=== PATIENT | female | born 1930 | race Caucasian/White ===

== ENCOUNTER 2017-01-13 01:01 | Inpatient (IN) | payer OTHER ==
[~2017-01-13] VITALS: Ht 162.6 cm; Wt 57.6 kg
[2017-01-13] VITALS (7 sets, daily range): BP systolic 94–121; BP diastolic 50–70
[~2017-01-13 01:01] MED LIST: ATORVASTATIN CA20 MG PO; BUSPAR5 MG PO; BYSTOLIC2.5 MG PO; DIVALPROEX SOD125 MG PO; DONEPEZIL HCL5 MG PO; FLOVENT DISKUS1 DISK IH; GLIPIZIDE ER2.5 MG PO; LISINOPRIL5 MG PO; LORAZEPAM0.5 MG PO; POLYETHYLENE G255 GM PO; QUETIAPINE FUMA25 MG PO; SERTRALINE HCL50 MG PO; TYLENOL WITH C1 EACH PO; VITAMIN B-12500 MC3 PO; VITAMIN D31000 UNIT PO
[2017-01-13 02:49] LABS: MCH 25.2 PG (29.0-34.0); MCHC 30.3 G/DL (30.0-36.0); MCV 83.1 FL (83-99); MEAN PLAT.VOLUME 8.9 uM^3 (9.5-12.4); PLATELET COUNT 482 K/uL (156-360); RBC DIS.WIDTH-CV 17.7 % (11.8-14.6); RBC DIS.WIDTH-SD 54.3 % (39-53); RED BLOOD COUNT 3.97 M/uL (3.80-5.20); WHITE BLOOD COUNT 13.5 K/uL (4.1-10.2)
[2017-01-13 03:01] LABS: CHLORIDE 107 mEq/L (99-109); POTASSIUM 4.5 mEq/L (3.7-5.4); SODIUM 142 mEq/L (136-147)
[2017-01-13 03:03] LABS: GLUCOSE 176 mg/dL (70-99)
[2017-01-13 03:04] LABS: ANION GAP 12 MEQ/L (2-14); INTER. NORMALIZED RATIO 1.1; PROTHROMBIN TIME 11.2 (9.2-11.2); PTT 29.7 (25-32)
[2017-01-13 03:05] LABS: TOTAL BILIRUBIN 0.1 mg/dL (0.0-1.0)
[2017-01-13 03:07] LABS: ALKALINE PHOSPHATASE 82 IU/L (3-129); GFR ESTIMATE (CALCULATED) > 59 mL/min/
[2017-01-13 03:08] LABS: UREA NITROGEN (BUN) 16 mg/dL (9-23)
[2017-01-13 03:10] LABS: LIPASE 589 U/L (1.0-51.0)
[2017-01-13 03:11] LABS: TROP-I INTERPRETATION NEGATIVE; TROPONIN-I < 0.01 ng/mL (0.0-0.30)
[2017-01-13 03:20] LABS: ADD MIUA? YES; BILIRUBIN NEGATIVE; BLOOD NEGATIVE; COLOR AMBER ((YELLOW)); GLUCOSE (STRIP) NEGATIVE; KETONES 5; LEUKOCYTES NEGATIVE; NITRITE NEGATIVE; PROTEIN (STRIP) 100; SPECIFIC GRAVITY 1.033 (1.000-1.030)
[2017-01-13 03:54] LABS: BACTERIA 2+ /HPF; CASTS PRESENT /LPF; CRYSTALS PRESENT; EPITHELIAL CELLS 1+ /HPF; MUCUS 2+ /LPF; RED BLOOD CELLS 0-5 /HPF (0-5); UCUL ADDED? NO; WHITE BLOOD CELLS 0-5 /HPF (0-5)
[2017-01-13 03:55] LABS: AMORPHOUS URATES CRYSTALS 2+; HYALINE CASTS 0-5 /LPF
[2017-01-13] MEDS ORDERED: ACETAMINOPHEN325 M3 PO (14:33)
[2017-01-13] MEDS ORDERED: CALCIUM 600 +1 EA17 PO (14:35)
[2017-01-13] MEDS ORDERED: FEOSOL325 MG PO (14:38)
[2017-01-13] MEDS ORDERED: FLOVENT DISKUS1 DISK IH (14:40)
[2017-01-13] MEDS ORDERED: LIDODERM 5% P1 PATCH TD (14:41)
[2017-01-13] MEDS ORDERED: METFORMIN HCL500 M1 PO (14:43)
[2017-01-13] MEDS ORDERED: DULCOLAX10 MG PR ×2 (14:44→16:16)
[2017-01-13] MEDS ORDERED: ATIVAN0.5 MG PO (14:46)
[2017-01-13] MEDS ORDERED: CALMOSEPTINE O120 GM TP (16:17)
[2017-01-14 03:29] VITALS: BP 106/58
[2017-01-14 06:13] LABS: MCHC 31.2 G/DL (30.0-36.0); MCV 83.6 FL (83-99); MEAN PLAT.VOLUME 9.2 uM^3 (9.5-12.4); PLATELET COUNT 383 K/uL (156-360); RBC DIS.WIDTH-CV 17.6 % (11.8-14.6); RBC DIS.WIDTH-SD 54.3 % (39-53); WHITE BLOOD COUNT 10.1 K/uL (4.1-10.2)
[2017-01-14 06:16] LABS: RED BLOOD COUNT 3.11 M/uL (3.80-5.20)
[2017-01-14 06:37] LABS: ALKALINE PHOSPHATASE 63 IU/L (3-129); ANION GAP 8 MEQ/L (2-14); CHLORIDE 104 MEQ/L (99-109); GFR ESTIMATE (CALCULATED) > 59 mL/min/; POTASSIUM 3.9 MEQ/L (3.7-5.4); SAMPLE HEMOLYSIS CHECK 0; SAMPLE ICTERIC CHECK 0; SAMPLE LIPEMIA CHECK 0; SODIUM 137 MEQ/L (136-147); TOTAL BILIRUBIN 0.2 MG/DL (0.0-1.0); UREA NITROGEN (BUN) 8 mg/dL (9-23)
[2017-01-14 06:51] LABS: GLUCOSE 109 mg/dL (70-99)
[2017-01-14 08:17] VITALS: BP 106/59
[2017-01-14 11:56] VITALS: BP 111/59
[2017-01-14 14:49] LABS: HEMATOCRIT 27.1 % (36.0-46.0); MCH 25.3 PG (29.0-34.0); MCHC 30.6 G/DL (30.0-36.0); MCV 82.6 FL (83-99); MEAN PLAT.VOLUME 8.8 uM^3 (9.5-12.4); PLATELET COUNT 431 K/uL (156-360); RBC DIS.WIDTH-CV 17.2 % (11.8-14.6); RBC DIS.WIDTH-SD 52.1 % (39-53); RED BLOOD COUNT 3.28 M/uL (3.80-5.20); WHITE BLOOD COUNT 10.6 K/uL (4.1-10.2)
[2017-01-14 16:03] VITALS: BP 99/52
[2017-01-14 19:41] VITALS: BP 111/55
[2017-01-14 23:52] VITALS: BP 113/74
[2017-01-15] VITALS (12 sets, daily range): BP systolic 110–158; BP diastolic 55–75
[2017-01-15 06:47] LABS: HEMATOCRIT 25.9 % (36.0-46.0); MCH 24.9 PG (29.0-34.0); MCHC 30.1 G/DL (30.0-36.0); MCV 82.7 FL (83-99); MEAN PLAT.VOLUME 8.7 uM^3 (9.5-12.4); PLATELET COUNT 404 K/uL (156-360); RBC DIS.WIDTH-CV 17.4 % (11.8-14.6); RBC DIS.WIDTH-SD 53.2 % (39-53); RED BLOOD COUNT 3.13 M/uL (3.80-5.20); WHITE BLOOD COUNT 10.4 K/uL (4.1-10.2)
[2017-01-16] VITALS (9 sets, daily range): BP systolic 117–158; BP diastolic 59–89
[2017-01-16 11:41] LABS: POINT-OF-CARE METER ID UU14149397
[2017-01-17] VITALS (10 sets, daily range): BP systolic 119–147; BP diastolic 59–87
[2017-01-17 06:45] LABS: HEMATOCRIT 43.2 % (36.0-46.0); MCH 26.9 PG (29.0-34.0); MCHC 32.6 G/DL (30.0-36.0); MCV 82.4 FL (83-99); PLATELET COUNT 371 K/uL (156-360); RBC DIS.WIDTH-CV 15.9 % (11.8-14.6); RBC DIS.WIDTH-SD 47.7 % (39-53); WHITE BLOOD COUNT 10.4 K/uL (4.1-10.2)
[2017-01-17 06:48] LABS: RED BLOOD COUNT 5.24 M/uL (3.80-5.20)
[2017-01-17 07:43] LABS: ALKALINE PHOSPHATASE 66 IU/L (3-129); ANION GAP 11 MEQ/L (2-14); CHLORIDE 104 MEQ/L (99-109); GFR ESTIMATE (CALCULATED) > 59 mL/min/; GLUCOSE 78 mg/dL (70-99); POTASSIUM 3.8 MEQ/L (3.7-5.4); SAMPLE HEMOLYSIS CHECK 0; SAMPLE ICTERIC CHECK 0; SAMPLE LIPEMIA CHECK 0; SODIUM 139 MEQ/L (136-147); UREA NITROGEN (BUN) 6 mg/dL (9-23)
[2017-01-17 07:46] LABS: TOTAL BILIRUBIN 0.4 MG/DL (0.0-1.0)
[2017-01-18 07:46] VITALS: BP 131/65
[2017-01-18 16:11] VITALS: BP 160/92
[2017-01-18 16:12] VITALS: BP 160/92
[2017-01-18 23:48] VITALS: BP 144/106
[2017-01-19 08:10] VITALS: BP 108/49
[2017-01-19 17:43] VITALS: BP 141/69
[2017-01-19 19:47] VITALS: BP 150/74
[2017-01-19 23:51] VITALS: BP 148/78
[2017-01-20 08:31] VITALS: BP 126/78
[2017-01-20 12:00] VITALS: BP 120/69
[2017-01-20 15:51] VITALS: BP 124/68
[2017-01-20 20:07] VITALS: BP 158/74
[2017-01-21] VITALS (8 sets, daily range): BP systolic 135–178; BP diastolic 62–85
[2017-01-21 07:19] LABS: ALKALINE PHOSPHATASE 56 IU/L (3-129); ANION GAP 13 MEQ/L (2-14); CHLORIDE 105 MEQ/L (99-109); GFR ESTIMATE (CALCULATED) > 59 mL/min/; GLUCOSE 83 mg/dL (70-99); POTASSIUM 3.5 MEQ/L (3.7-5.4); SAMPLE HEMOLYSIS CHECK 0; SAMPLE ICTERIC CHECK 0; SAMPLE LIPEMIA CHECK 0; SODIUM 139 MEQ/L (136-147); UREA NITROGEN (BUN) 7 mg/dL (9-23)
[2017-01-21 07:20] LABS: TOTAL BILIRUBIN 0.3 MG/DL (0.0-1.0)
[2017-01-21 07:27] LABS: HEMATOCRIT 40.7 % (36.0-46.0); MCH 26.9 PG (29.0-34.0); MCHC 31.9 G/DL (30.0-36.0); MCV 84.3 FL (83-99); MEAN PLAT.VOLUME 8.8 uM^3 (9.5-12.4); PLATELET COUNT 390 K/uL (156-360); RBC DIS.WIDTH-CV 16.3 % (11.8-14.6); RBC DIS.WIDTH-SD 50.4 % (39-53); RED BLOOD COUNT 4.83 M/uL (3.80-5.20); WHITE BLOOD COUNT 11.6 K/uL (4.1-10.2)
[2017-01-22 03:35] VITALS: BP 161/74
[2017-01-22 08:03] VITALS: BP 189/84
[2017-01-22 10:16] LABS: POINT-OF-CARE METER ID UU14149397
[2017-01-22 10:49] LABS: POINT-OF-CARE METER ID UU14149397
[2017-01-22 12:19] VITALS: BP 160/77
[2017-01-22 16:11] VITALS: BP 143/64
[2017-01-22 19:08] VITALS: BP 150/72
[2017-01-22 21:58] LABS: POINT-OF-CARE METER ID UU14149397
[2017-01-23] VITALS (10 sets, daily range): BP systolic 139–182; BP diastolic 64–83
[2017-01-23 09:07] LABS: POINT-OF-CARE METER ID UU14149397
[2017-01-23 12:02] LABS: POINT-OF-CARE METER ID UU14149397
[2017-01-23 17:32] LABS: POINT-OF-CARE METER ID UU14188577
[2017-01-23 21:47] LABS: POINT-OF-CARE METER ID UU14149397
[2017-01-24 03:16] VITALS: BP 151/72
[2017-01-24 07:26] VITALS: BP 142/71
[2017-01-24 11:40] VITALS: BP 152/72
[2017-01-24 11:53] LABS: POINT-OF-CARE METER ID UU14149397
[2017-01-24 16:07] VITALS: BP 163/74
[2017-01-24 16:45] LABS: POINT-OF-CARE METER ID UU14188577
[2017-01-24 20:35] VITALS: BP 154/74
[2017-01-24 21:40] LABS: POINT-OF-CARE METER ID UU14149397
[2017-01-25 00:49] VITALS: BP 166/81
[2017-01-25 04:33] VITALS: BP 145/65
[2017-01-25 06:51] LABS: POINT-OF-CARE METER ID UU14188577
[2017-01-25 07:48] VITALS: BP 142/78
[2017-01-25 12:36] LABS: POINT-OF-CARE METER ID UU14149397
[2017-01-25 16:08] VITALS: BP 143/66
[2017-01-25] MEDS ORDERED: DUONEB 2.5-0.5 M3 ML AEROSOL (16:29)
[2017-01-25 17:21] LABS: POINT-OF-CARE METER ID UU14149397
== END 2017-01-25 19:44 | disposition home or self-care (01) | DRG 871 ==
LOC: EME → EDBD 01:01 → EME 01:01 → EDOF 04:49 → 3EAST 04:49
PROVIDERS: Emergency Medicine; Internal Medicine
PROC: 30233N1 Transfusion of Nonautologous Red Blood Cells into Peripheral Vein, Percutaneous Approach (ICD-10-PCS; principal; 2017-01-15)
DX: A41.9 Sepsis, unspecified organism (principal); J18.9 Pneumonia, unspecified organism; N39.0 Urinary tract infection, site not specified; J90 Pleural effusion, not elsewhere classified; J98.11 Atelectasis; J44.0 Chronic obstructive pulmonary disease with (acute) lower respiratory infection; F05 Delirium due to known physiological condition; B95.2 Enterococcus as the cause of diseases classified elsewhere; Z51.5 Encounter for palliative care; Z66 Do not resuscitate; D64.89 Other specified anemias; Z87.440 Personal history of urinary (tract) infections; F03.90 Unspecified dementia, unspecified severity, without behavioral disturbance, psychotic disturbance, mood disturbance, and anxiety; I10 Essential (primary) hypertension; E11.9 Type 2 diabetes mellitus without complications; K29.80 Duodenitis without bleeding; K52.9 Noninfective gastroenteritis and colitis, unspecified; R06.89 Other abnormalities of breathing; R09.02 Hypoxemia; Z99.3 Dependence on wheelchair; Z79.84 Long term (current) use of oral hypoglycemic drugs; J84.10 Pulmonary fibrosis, unspecified; R91.8 Other nonspecific abnormal finding of lung field
CPT/HCPCS: 71010; 71020; 71250; 71260; 74177; 80053; 81003; 82272; 82948; 83605; 83690; 83880; 84484; 85025; 85027; 85610; 85730; 86900; 86901; 86920; 87040; 87077; 87186; 87801; 93005; 94640; 94640 76; 94760; 94799; 97530 GP; 99202; 99281; 99285; J0295; J0456; J0692; J0696; J1650; J1815; J1940; J2405; J7030; J7050; P9016; S0030